=== PATIENT | female | born 1995 | race Caucasian/White ===

== ENCOUNTER → 2017-12-13 | Outpatient (CLI) | payer OTHER ==
[~2017-12-13] MED LIST: NAPROSYN500 MG PO; TRINESSA1 EACH PO
[2017-12-15 13:13] LABS: Flow Number of Markers 22 (()); Flow Spec Viability 63 % (())
== END | disposition home or self-care (01) ==
LOC: RAD 08:25 → EDSTATUS 09:00
PROVIDERS: Physician Assistant Medical
PROC: 07B43ZX Excision of Left Upper Extremity Lymphatic, Percutaneous Approach, Diagnostic (ICD-10-PCS; principal; 2017-12-13)
DX: D48.7 Neoplasm of uncertain behavior of other specified sites (principal)
CPT/HCPCS: 76942; 88305